=== PATIENT | male | born 2000 | race Caucasian/White ===

== ENCOUNTER 2021-08-25 12:18 | Emergency (ER) | payer OTHER | END 2021-08-25 12:53 | disposition left against medical advice (07) | LOC: CSHERS 12:18 | DX: Z53.21 Procedure and treatment not carried out due to patient leaving prior to being seen by health care provider (principal) ==

== ENCOUNTER 2021-08-26 09:37 | Emergency (ER) | payer OTHER, SELFPAY | END 2021-08-26 12:45 | disposition home or self-care (01) | LOC: CSHERS 09:37 | DX: L02.212 Cutaneous abscess of back [any part, except buttock and flank] (principal) | CPT/HCPCS: 99283 ==

== ENCOUNTER 2024-01-30 10:18 | Emergency (ER) | payer OTHER ==
[~2024-01-30 10:18] MED LIST: Iopamidol 370 76% 100 ML VIAL ONE
[2024-01-30] MEDS ORDERED: Fluorescein Opthalmic Strip ONE (11:12)
[2024-01-30] MEDS ORDERED: Proparacaine 0.5% Opth 15 ML BOT ONE (11:13)
[2024-01-30] MEDS ORDERED: Boostrix 0.5 ML (Tdap) VIAL (>/=7 yrs of age) ONE (11:34)
== END 2024-01-30 12:42 | disposition home or self-care (01) ==
LOC: CSHERS 10:18
DX: S02.2XXA Fracture of nasal bones, initial encounter for closed fracture (principal); S05.02XA Injury of conjunctiva and corneal abrasion without foreign body, left eye, initial encounter; S05.12XA Contusion of eyeball and orbital tissues, left eye, initial encounter; H11.32 Conjunctival hemorrhage, left eye; R04.2 Hemoptysis; Z23 Encounter for immunization; X58.XXXA Exposure to other specified factors, initial encounter
CPT/HCPCS: 70498; 71046; 90471; 90715; 93005